=== PATIENT | female | born 1985 | race Caucasian/White ===

== ENCOUNTER 2018-06-09 15:11 | Emergency (ER) | payer SELFPAY ==
[~2018-06-09] VITALS: Ht 162.6 cm; Wt 78.5 kg
[2018-06-09 15:37] VITALS: Ht 162.6 cm; Wt 78.5 kg
[2018-06-09 17:12] LABS: BASOPHIL % 0.9 % (0-2); PLATELET COUNT 223 x10^3mcL (130-400); RED CELL DISTRIBUTION WIDTH 13.4 % (11.5-14.5)
[2018-06-09 18:15] VITALS: BP 135/87
== END 2018-06-09 18:15 | disposition home or self-care (01) ==
LOC: ED 15:11
PROVIDERS: Emergency Medicine
DX: O20.9 Hemorrhage in early pregnancy, unspecified (principal); O26.891 Other specified pregnancy related conditions, first trimester; R10.30 Lower abdominal pain, unspecified; Z3A.01 Less than 8 weeks gestation of pregnancy
CPT/HCPCS: 36415